=== PATIENT | female | born 2000 | race Two or more races ===

== ENCOUNTER 2023-11-23 20:01 | Emergency (ER) | payer OTHER ==
[~2023-11-23] VITALS: Ht 160 cm; Wt 83.5 kg
[2023-11-23] MEDS ORDERED: IBUprofen 100 MG/5 ML-120ML ML PO STA (20:54)
== END 2023-11-23 22:16 | disposition home or self-care (01) ==
LOC: ER 20:03
DX: M25.572 Pain in left ankle and joints of left foot (principal)